=== PATIENT | female | born 1995 | race Caucasian/White ===

== ENCOUNTER 2022-01-17 15:22 | Emergency (ER) | payer OTHER ==
[2022-01-17] MEDS ORDERED: ONDANSETRON 4 MG/2 ML VIAL IVP STA (15:34)
[2022-01-17] MEDS ORDERED: SODIUM CHLORIDE 0.9% 1,000 ML IV STA (15:34)
[2022-01-17 16:01] LABS: BASOPHILS # (AUTO) 0.1 10^3/uL (0.0-0.1); BASOPHILS % (AUTO) 0.6 %; EOSINOPHILS # (AUTO) 0.1 10^3/uL (0.0-0.7); EOSINOPHILS % (AUTO) 0.6 %; HCT - HEMATOCRIT 40.6 % (37.0-47.0); HGB - HEMOGLOBIN 14.3 g/dL (12.0-16.0); LYMPHOCYTES # (AUTO) 1.3 10^3/uL (1.5-3.5); LYMPHOCYTES % (AUTO) 16.4 %; MEAN CORPUSCULAR HEMOGLOBIN 29.7 pg (27.0-31.0); MEAN CORPUSCULAR HGB CONC 35.2 g/dL (32.0-36.0); MEAN CORPUSCULAR VOLUME 84.2 fL (81.0-99.0); MEAN PLATELET VOLUME 10.2 fL (7.9-10.8); MONOCYTES # (AUTO) 0.3 10^3/uL (0.0-1.0); MONOCYTES % (AUTO) 4.4 %; NEUTROPHILS # (AUTO) 6.1 10^3/uL (1.5-6.6); NEUTROPHILS % (AUTO) 77.7 %; PLT - PLATELET COUNT 219 10^3/uL (130-450); RED BLOOD COUNT 4.82 10^6/uL (4.20-5.40); WHITE BLOOD COUNT 7.8 x10^3/uL (4.8-10.8)
[2022-01-17 16:13] LABS: ALBUMIN 4.7 g/dL (3.2-5.5); ALBUMIN/GLOBULIN RATIO 1.6 (1.0-2.2); BILIRUBIN,TOTAL 1.1 mg/dL (0.2-1.0); CALCIUM 9.3 mg/dL (8.5-10.3); CREATININE 0.5 mg/dL (0.4-1.0); POTASSIUM 3.8 mmol/L (3.5-5.0); TOTAL PROTEIN 7.7 g/dL (6.7-8.2)
[2022-01-17 16:41] LABS: HCG,QUALITATIVE BLOOD POSITIVE
[2022-01-17 17:00] LABS: BILIRUBIN,URINE NEGATIVE (NEGATIVE); GLUCOSE, URINE (UA) NEGATIVE (NEGATIVE); KETONES,URINE (UA) >=80 mg/dL (NEGATIVE); LEUKOCYTE ESTERASE, URINE NEGATIVE (NEGATIVE); NITRITE,URINE NEGATIVE (NEGATIVE); OCCULT BLOOD,URINE SMALL (NEGATIVE); PROTEIN,URINE TRACE mg/dL (NEGATIVE); UROBILINOGEN,URINE 0.2 (NORMAL) E.U./dL (NORMAL)
--- NOTE | 2022-01-17 17:08 | ED Physician Documentation ---
History of Present Illness - Stated complaint Stated Complaint: NAUSEA,VOMIT,PREG - Chief complaint Chief Complaint: General - Additonal information Additional information: 26-year-old Female presents emergency department for evaluation of 2 days uncontrolled nausea and vomiting. She is in her first trimester . LMP 12/02/2021 . She was sent from her OB office for IV fluids and antiemetic. She was prescribed Reglan which did not help with symptoms. No pertinent past medical history. She denies lower abdominal pain vaginal bleeding or cramping. No loss of fluids Review of Systems Constitutional: reports: Reviewed and negative Throat: reports: Reviewed and negative Cardiac: reports: Reviewed and negative Respiratory: reports: Reviewed and negative GI: reports: Nausea, Vomiting. denies: Constipation, Diarrhea, Hematemesis : reports: Reviewed and negative Skin: reports: Reviewed and negative Musculoskeletal: reports: Reviewed and negative PD PAST MEDICAL HISTORY - Present Medications Home Medications: Ambulatory Orders Medication Instructions Recorded Confirmed Metoclopramide [Reglan] 5 mg PO TID PRN 01/17/22 01/17/22 Ondansetron Odt [Zofran] 4 mg TL Q6H PRN #10 tablet 01/17/22 Pnv No.95/Ferrous Fum/Folic AC 1 each PO DAILY 01/17/22 01/17/22 [ Tablet] - Allergies Allergies/Adverse Reactions: Allergies Allergy/AdvReac Type Severity Reaction Status Date / Time No Known Drug Allergies Allergy Verified 01/17/22 15:26 PD ED PE NORMAL - General General: Alert and oriented X 3, No acute distress - HEENT HEENT: PERRL - Cardiac Cardiac: No murmur - Respiratory Respiratory: Clear bilaterally - Abdomen Abdomen: Normal bowel sounds, Soft, Non tender, Non distended - Back Back: No CVA TTP - Derm Derm: Warm and dry - Extremities Extremities: No deformity - Neuro Neuro: Alert and oriented X 3, pattern repair person 2-12 intact Eye Opening: Spontaneous Motor: Obeys Commands Verbal: Oriented GCS Score: 15 - Psych Psych: Normal mood Results - Vitals Vitals: Vital Signs - 24 hr 01/17/22 01/17/22 15:27 17:26 Temperature 36.5 C 36.7 C Heart Rate 105 H 75 Respiratory 16 16 Rate Blood Pressure 121/62 116/61 O2 Saturation 100 100 Oxygen O2 Source Room air - Labs Labs: Laboratory Tests 01/17/22 01/17/22 01/17/22 15:48 15:48 15:48 WBC 7.8 RBC 4.82 Hgb 14.3 Hct 40.6 MCV 84.2 MCH 29.7 MCHC 35.2 RDW 12.0 Plt Count 219 MPV 10.2 Neut # (Auto) 6.1 Lymph # (Auto) 1.3 L [place] # (Auto) 0.3 Eos # (Auto) 0.1 Baso # (Auto) 0.1 Absolute Nucleated RBC 0.00 Nucleated RBC % 0.0 Sodium 134 L Potassium 3.8 Chloride 102 Carbon Dioxide 19 L Anion Gap 13.0 BUN 11 Creatinine 0.5 Estimated GFR (MDRD) 150 Glucose 84 Calcium 9.3 Total Bilirubin 1.1 H AST 16 ALT 12 Alkaline Phosphatase 35 L Total Protein 7.7 Albumin 4.7 Globulin 3.0 Albumin/Globulin Ratio 1.6 Lipase 40 Serum HCG, Qual POSITIVE Urine Color Urine Clarity Urine pH Ur Specific [place] Urine Protein Urine Glucose (UA) Urine Ketones Urine Occult Blood Urine Nitrite Urine Bilirubin Urine Urobilinogen Ur Leukocyte Esterase Urine RBC Urine WBC Ur Squamous Epith Cells Urine Bacteria Ur Microscopic Review Urine Culture Comments Blood Type 01/17/22 01/17/22 15:48 16:25 WBC RBC Hgb Hct MCV MCH MCHC RDW Plt Count MPV Neut # (Auto) Lymph # (Auto) [place] # (Auto) Eos # (Auto) Baso # (Auto) Absolute Nucleated RBC Nucleated RBC % Sodium Potassium Chloride Carbon Dioxide Anion Gap BUN Creatinine Estimated GFR (MDRD) Glucose Calcium Total Bilirubin AST ALT Alkaline Phosphatase Total Protein Albumin Globulin Albumin/Globulin Ratio Lipase Serum HCG, Qual Urine Color YELLOW Urine Clarity CLEAR Urine pH 6.0 Ur Specific [place] >=1.030 H Urine Protein TRACE Urine Glucose (UA) NEGATIVE Urine Ketones >=80 H Urine Occult Blood SMALL H Urine Nitrite NEGATIVE Urine Bilirubin NEGATIVE Urine Urobilinogen 0.2 (NORMAL) Ur Leukocyte Esterase NEGATIVE Urine RBC 0-5 Urine WBC 0-3 Ur Squamous Epith Cells NONE SEEN Urine Bacteria None Seen Ur Microscopic Review INDICATED Urine Culture Comments NOT INDICATED Blood Type A POSITIVE - Rads (name of study) OB US Radiology: Final report received (Single viable live IUP. heart rate 138. Right corpus luteal cyst. Small amount of physiologic pelvic free fluid. No subchorionic hemorrhage. ) PD MEDICAL DECISION MAKING - ED course Complexity details: reviewed results, re-evaluated patient, considered differential, d/w patient ED course: 26-year-old female presents to the emergency department for evaluation of uncontrolled nausea and vomiting in the setting of first trimester . She was seen by Fiorella Wood and started on Reglan without relief of symptoms. Screening labs today do not show any acute worrisome findings. No bacteria. Pelvic ultrasound did reveal a live IUP with heart rate of 138. No findings of subchorionic hemorrhage. 9 here in the emergency department patient was given a liter of fluids as well as Zofran. Following this she is tolerating sips of clear liquids. Discussed routine management of nausea and vomiting first trimester . She will continue to follow-up with Fiorella Wood. Emergent worrisome return precautions otherwise discussed. Departure - Departure Disposition: Home, Self Care Clinical Impression: Morning sickness Condition: Stable Record reviewed to determine appropriate education?: Yes Instructions: ED Preg Morning Sickness Prescriptions: Ondansetron Odt [Zofran] 4 mg TL Q6H PRN #10 tablet PRN Reason: Nausea / Vomiting Comments: Ian you are seen today in the emergency department for nausea and vomiting in the first trimester . The ultrasound showed a live intrauterine with a heart rate of 138. This is normal at this stage of . We did give you some IV fluids as well as a medication called Zofran. Following this you are tolerating sips of clear liquids. [place] would like you to discuss this ED visit with Fiorella Wood your treater. If you find that your symptoms worsen, you have any vaginal bleeding, sudden severe lower pelvic pain then please return to the ER for a second evaluation
[2022-01-17 17:13] LABS: CLARITY,URINE CLEAR (CLEAR)
[2022-01-17 17:18] LABS: BACTERIA,URINE None Seen /HPF (None Seen); RBC,URINE 0-5 /HPF (0-5); SQUAMOUS EPITHELIAL CELL,UR NONE SEEN (<= Few); WBC,URINE 0-3 /HPF (0-5)
[2022-01-17 18:23] VITALS: BP 123/60
--- NOTE | 2022-01-17 20:19 | Ultrasound Report ---
PROCEDURE: OB First Trimester INDICATIONS: n/v () OUTSIDE/PRIOR DATING DATA: Last menstrual period (LMP): 12/02/2021. LMP-based estimated date of delivery (DAMEON): 09/08/2022. First dating scan (date and location): 01/17/2022. Estimated date of delivery (DAMEON) from first dating scan: 09/04/2022. The below data below was generated using the ultrasound DAMEON of 09/04/2022 TECHNIQUE: Real-time scanning was performed of the fetus and maternal pelvic organs, with image documentation. COMPARISON: None FINDINGS: There is a early first trimester living intrauterine with a crown rump length an d heartbeat. Embryo: 1.04 cm, 7 weeks 1 day Heart rate: 138 bpm Measurement variability in dating: +/- 4 weeks by LMP, +/- 7 days by mean sac diameter (use before 6 weeks gestation if crown-rump length not able to be measured), +/- 5 days by crown-rump length (6-12 weeks gestation). Maternal organs: Ovaries demonstrate a right ovarian corpus luteum.. IMPRESSION: Early first trimester intrauterine with crown-rump length and heart beat measuring 7 weeks 1 day Reviewed by: Willis Cary MD on 01/17/2022 8:18 PM PDT Approved by: Willis Cary MD on 01/17/2022 8:18 PM PDT Station ID: [id number]
== END 2022-01-17 18:24 | disposition home or self-care (01) ==
LOC: ED 15:22
DX: O21.0 Mild hyperemesis gravidarum (principal); Z3A.01 Less than 8 weeks gestation of pregnancy
CPT/HCPCS: 36415; 80053; 81001; 81003; 83690; 84703; 85025; 86900; 86901; 87086; 96374; 99283

== ENCOUNTER 2022-02-15 16:58 | Outpatient (CLI) | payer OTHER ==
[2022-02-15 21:04] LABS: BASOPHILS # (AUTO) 0.1 10^3/uL (0.0-0.1); BASOPHILS % (AUTO) 0.5 %; EOSINOPHILS # (AUTO) 0.2 10^3/uL (0.0-0.7); EOSINOPHILS % (AUTO) 1.7 %; HCT - HEMATOCRIT 38.9 % (37.0-47.0); HGB - HEMOGLOBIN 13.3 g/dL (12.0-16.0); LYMPHOCYTES # (AUTO) 2.1 10^3/uL (1.5-3.5); LYMPHOCYTES % (AUTO) 23.1 %; MEAN CORPUSCULAR HGB CONC 34.2 g/dL (32.0-36.0); MEAN CORPUSCULAR VOLUME 87.6 fL (81.0-99.0); MEAN PLATELET VOLUME 10.8 fL (7.9-10.8); MONOCYTES # (AUTO) 0.5 10^3/uL (0.0-1.0); MONOCYTES % (AUTO) 5.5 %; NEUTROPHILS # (AUTO) 6.3 10^3/uL (1.5-6.6); NEUTROPHILS % (AUTO) 68.9 %; PLT - PLATELET COUNT 286 10^3/uL (130-450); RED BLOOD COUNT 4.44 10^6/uL (4.20-5.40); WHITE BLOOD COUNT 9.2 x10^3/uL (4.8-10.8)
[2022-02-17 04:09] LABS: HBsAG SCREEN Negative (Negative); HCV AB <0.1 s/co ratio (0.0-0.9); RPR Non Reactive (Non Reactive)
[2022-02-17 06:08] LABS: HIV SCREEN 4TH GENERATION Non Reactive (Non Reactive)
[2022-02-17 15:09] LABS: VARICELLA-ZOSTER AB IGG <135 index (Immune >165)
== END 2022-02-15 16:59 | disposition home or self-care (01) ==
LOC: LAB.N 16:58
PROVIDERS: ATTEND Nurse Practitioner Obstetrics & Gynecology
DX: Z36.89 Encounter for other specified antenatal screening (principal)
CPT/HCPCS: 36415; 85025; 86592; 86762; 86787; 86803; 86850; 86900; 86901; 87340; 87389